=== PATIENT | male | born 1960 | race Caucasian/White ===

== ENCOUNTER 2019-04-24 01:50 | Emergency (ER) | payer OTHER ==
[~2019-04-24] VITALS: Ht 170.2 cm; Wt 74.4 kg
[2019-04-24 01:55] VITALS: Ht 170.2 cm; Wt 74.4 kg
[2019-04-24 02:21] LABS: BASOPHIL % 1.1 % (0-2); PLATELET COUNT 384 x10^3mcL (130-400); RED CELL DISTRIBUTION WIDTH 12.6 % (11.5-14.5)
[2019-04-24 03:29] LABS: CALCIUM 9.1 mg/dL (8.5-10.1); CARBON DIOXIDE 27.6 mmol/L (21-32); CHLORIDE SERUM 96 mmol/L (98-107); CREATININE SERUM 1.1 mg/dL (0.7-1.3); GFR1 > 60 mL/min; GLUCOSE SERUM 303 mg/dL (74-106); POTASSIUM SERUM 4.2 mmol/L (3.5-5.1); SODIUM SERUM 135 mmol/L (136-145)
[2019-04-24 03:33] LABS: ALBUMIN 3.5 g/dL (3.4-5.0); ALKALINE PHOSPHATASE 108 U/L (46-116); ALT/SGPT 22 U/L (16-63); AST/SGOT 8 U/L (15-37); BILIRUBIN TOTAL 0.31 mg/dL (0.20-1.00); LIPASE 627 IU/L (73-393); TOTAL PROTEIN, SERUM 8.1 g/dL (6.4-8.2)
[2019-04-24 04:24] VITALS: BP 136/93
== END 2019-04-24 04:24 | disposition home or self-care (01) ==
LOC: ED 01:50
PROVIDERS: Emergency Medicine
DX: R10.10 Upper abdominal pain, unspecified (principal); I10 Essential (primary) hypertension; E11.9 Type 2 diabetes mellitus without complications; K21.9 Gastro-esophageal reflux disease without esophagitis
CPT/HCPCS: 36415; J1885

== ENCOUNTER 2019-06-14 16:19 | Emergency (ER) | payer OTHER ==
[~2019-06-14] VITALS: Ht 172.7 cm; Wt 77.1 kg
[2019-06-14 16:25] VITALS: Ht 172.7 cm; Wt 77.1 kg
[2019-06-14 17:19] LABS: BASOPHIL % 0.4 % (0-2); PLATELET COUNT 342 x10^3mcL (130-400); RED CELL DISTRIBUTION WIDTH 13.8 % (11.5-14.5)
[2019-06-14] MEDS ORDERED: ZESTRIL5 MG PO (17:24)
[2019-06-14] MEDS ORDERED: GLIPIZIDE XL10 M1 PO (17:24)
[2019-06-14] MEDS ORDERED: CHOLECALCIFEROL1 CRY (17:25)
[2019-06-14] MEDS ORDERED: ELA50 PO (17:26)
[2019-06-14] MEDS ORDERED: ATORVASTATIN CA20 M1 PO (17:27)
[2019-06-14] MEDS ORDERED: REGLAN5 M1 PO (17:27)
[2019-06-14] MEDS ORDERED: METFORMIN HYDR500 M1 PO (17:28)
[2019-06-14] MEDS ORDERED: ACT15 PO (17:28)
[2019-06-14 17:30] LABS: microscopic required? NO
[2019-06-14 18:12] LABS: ERYTHROCYTE SED RATE 7 mm/hr (0-20)
[2019-06-14 18:19] LABS: FREE T4 1.04 ng/dL (0.76-1.46); FREE THYROXINE INDEX 2.5 ug/dL (1.4-4.5); T4(THYROXINE) 6.9 ug/dL (4.7-13.3)
[2019-06-14 18:33] LABS: CALCIUM 8.4 mg/dL (8.5-10.1); CARBON DIOXIDE 23.9 mmol/L (21-32); CHLORIDE SERUM 100 mmol/L (98-107); CREATININE SERUM 1.6 mg/dL (0.7-1.3); GFR1 47 mL/min; GLUCOSE SERUM 277 mg/dL (74-106); POTASSIUM SERUM 4.6 mmol/L (3.5-5.1); SODIUM SERUM 133 mmol/L (136-145)
[2019-06-14 18:36] LABS: urine erythrocyte NEGATIVE (NEGATIVE)
[2019-06-14 18:45] LABS: ALKALINE PHOSPHATASE 80 U/L (46-116); ALT/SGPT 27 U/L (16-63); AST/SGOT 14 U/L (15-37); BILIRUBIN TOTAL 0.3 mg/dL (0.20-1.00); TOTAL PROTEIN, SERUM 6.4 g/dL (6.4-8.2)
[2019-06-14 18:48] LABS: ALBUMIN 3.1 g/dL (3.4-5.0)
[2019-06-14 18:50] LABS: CK-MB 0.8 ng/mL (0-3.6)
[2019-06-14 18:54] LABS: AMPHETAMINE QUAL UR POSITIVE (See below)
[2019-06-14 19:01] LABS: T3 TOTAL 1.45 ng/mL
[2019-06-14 19:08] LABS: C REACTIVE PROTEIN < 0.2 mg/dL (<=0.9)
[2019-06-14 19:35] VITALS: BP 107/77
== END 2019-06-14 19:35 | disposition home or self-care (01) ==
LOC: ED 16:19
PROVIDERS: Specialist
DX: R55 Syncope and collapse (principal); E86.0 Dehydration; F15.10 Other stimulant abuse, uncomplicated; I10 Essential (primary) hypertension; E11.9 Type 2 diabetes mellitus without complications; K21.9 Gastro-esophageal reflux disease without esophagitis
CPT/HCPCS: 36600; 84439; 87804; G0480; J7030; Q0092